=== PATIENT | male | born 1970 | race Caucasian/White ===

== ENCOUNTER 2018-09-08 23:46 | Emergency (ER) | payer SELFPAY ==
[2018-09-08 23:59] VITALS: BP 121/86
[2018-09-09] MEDS ORDERED: BUFFERED LIDOCAINE 10 ML SYRINGE SUBQ STA (00:31)
[2018-09-09] MEDS ORDERED: SULFAM/TRIM 800/160 Prepack 2 PO ONE (01:30)
--- NOTE | 2018-09-09 01:32 | ED Physician Documentation ---
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 It is quite painful with any movement. He does have a prior history of having something similar happen to his knee and that required a hospitalization with a cleanout of his knee. This was for him a staph organism. Review of Systems Constitutional: reports: Fatigue. denies: Fever, Chills Eyes: denies: Decreased vision Ears: denies: Ear pain Nose: denies: Congestion Throat: denies: Sore throat Respiratory: denies: Cough GI: denies: Vomiting Skin: denies: Rash Musculoskeletal: reports: Extremity pain, Joint pain, Extremity swelling, Joint swelling. denies: Neck pain, Back pain Neurologic: denies: Generalized weakness, Focal weakness, Numbness PD PAST MEDICAL HISTORY - Present Medications Home Medications: Ambulatory Orders Medication Instructions Recorded Confirmed Sulfamethoxazole/Trimethoprim 1 each PO BID #14 tablet 09/09/18 [Sulfamethoxazole-Tmp Ds Tablet] - Allergies Allergies/Adverse Reactions: Allergies Allergy/AdvReac Type Severity Reaction Status Date / Time No Known Drug Allergies Allergy Verified 09/08/18 23:59 PD ED PE NORMAL - Vitals Vital signs reviewed: Yes (tachy nad hypertensive) - General General: Alert and oriented X 3, Well developed/nourished, Other (appears to be in pain ) - HEENT HEENT: Atraumatic, PERRL, EOMI - Neck Neck: Supple, no meningeal sign, No bony TTP - Respiratory Respiratory: No respiratory distress - Derm Derm: Normal color, Warm and dry - Extremities Extremities: Other (There is swelling point tenderness and erythema to the left elbow with surrounding cellulitis from about 2cm up the humerus to 3cm below the olecrenon process. The olecrenon is tender and mostly firm with a central area of bogginess. Distal n/v is intact. 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, No motor deficit, No sensory deficit, Normal speech Eye Opening: Spontaneous Motor: Obeys Commands Verbal: Oriented GCS Score: 15 - Psych Psych: Normal mood, Normal affect Results - Vitals Vitals: Vital Signs - 24 hr 09/08/18 23:56 Temperature 37.2 C Heart Rate 110 H Respiratory 18 Rate Blood Pressure 121/86 H O2 Saturation 98 Oxygen O2 Source Room air - Labs Labs: Microbiology 09/09/18 01:15 Wound Culture - Preliminary Abscess Procedures - Abscess I&D (location) left elbow Preparation: Confirmed with ultrasound, Chlorhexadine, Lidocaine 1% Incision: Needle aspiration, Purulent drainage, Culture obtained Other: Pt tolerated well, Antibiotic prescribed PD MEDICAL DECISION MAKING - ED course Complexity details: reviewed results, re-evaluated patient, considered differential, d/w patient, d/w family ED course: 47-year-old male has an abscess to his left elbow it is indeterminate if this is in the bursa or in the soft tissue of the elbow. Only a small amount of fluid is drained from a fluid collection that is small over the tip of the elbow. Patient is placed onto Septra and will follow up with orthopedics. Departure - Departure Disposition: 01 Home, Self Care Clinical Impression: Abscess Condition: Stable Instructions: ED Abscess IandD Follow-Up: [facility] [Provider Group] Prescriptions: Sulfamethoxazole/Trimethoprim [Sulfamethoxazole-Tmp Ds Tablet] 1 each PO BID #14 tablet Discharge Date/Time: 09/09/18 02:29
== END 2018-09-09 02:29 | disposition home or self-care (01) ==
LOC: ED 23:46
DX: L02.414 Cutaneous abscess of left upper limb (principal); L03.114 Cellulitis of left upper limb
CPT/HCPCS: 10160; 23930; 87070; 87181; 87205; 99283

== ENCOUNTER 2018-09-10 21:17 | Emergency (ER) | payer SELFPAY ==
[2018-09-10] MEDS ORDERED: HYDROmorphone 1 MG/ML CARPUJECT IM STA (21:40)
[2018-09-10] MEDS ORDERED: LORazepam 2 MG/ML VIAL IM STA (21:40)
[2018-09-10] MEDS ORDERED: BUFFERED LIDOCAINE 10 ML SYRINGE SUBQ STA (21:40)
--- NOTE | 2018-09-10 21:42 | ED Physician Documentation ---
PD HPI UPPER EXT INJURY - Stated complaint Stated Complaint: ARM PX - Chief complaint Chief Complaint: Ext Problem - History obtained from History obtained from: Patient - History of Present Illness Location: Left Type of injury: Blunt / blow (This is a 47-year-old gentleman who was seen here 2 days ago for left elbow swelling. A needle aspiration of either bursitis or an abscess was done and preliminarily at this point is growing staph aureus, sensitivities are not available yet. He has had a reaccumulation of the fluid and significant pain. He feels a little sick but no measured fevers.) Review of Systems Constitutional: denies: Fever, Chills GI: denies: Abdominal Pain, Nausea, Vomiting : denies: Dysuria, Frequency PD PAST MEDICAL HISTORY - Present Medications Home Medications: Ambulatory Orders Medication Instructions Recorded Confirmed Sulfamethoxazole/Trimethoprim 1 each PO BID #14 tablet 09/09/18 [Sulfamethoxazole-Tmp Ds Tablet] Hydrocodone/Acetaminophen 1 - 2 each PO Q6H PRN #14 tablet 09/10/18 [Hydrocodon-Acetaminophen 5-325] - Allergies Allergies/Adverse Reactions: Allergies Allergy/AdvReac Type Severity Reaction Status Date / Time No Known Drug Allergies Allergy Verified 09/10/18 21:25 PD ED PE NORMAL - Vitals Vital signs reviewed: Yes - General General: Alert and oriented X 3, No acute distress - Extremities Extremities: Other (He appears to have septic olecranon bursitis of the left elbow with full and painless range of motion.) - Neuro Neuro: Alert and oriented X 3, Normal speech - Psych Psych: Normal mood, Normal affect Results - Vitals Vitals: Vital Signs - 24 hr 09/10/18 21:28 Temperature 36.6 C Heart Rate 118 H Respiratory 18 Rate Blood Pressure 144/97 H O2 Saturation 99 Oxygen O2 Source Room air Procedures - Abscess I&D (location) Left elbow bursa Preparation: Betadine, Lidocaine 1%, Other (pretreated with ativan/dilaudid IM) Incision: Incised with scalpel, Purulent drainage, Loculations broken, Packed (with 1/4 inch packing). No: Culture obtained (already done) Other: Pt tolerated well, Dressing applied. No: Antibiotic prescribed (on bactrim) Departure - Departure Disposition: 01 Home, Self Care Clinical Impression: Septic bursitis of elbow Qualifiers: Laterality: left Qualified Code(s): M71.122 - Other infective bursitis, left elbow Condition: Good Record reviewed to determine appropriate education?: Yes Instructions: ED Bursitis Elbow Olecranon Follow-Up: [facility] [Provider Group] Prescriptions: Hydrocodone/Acetaminophen [Hydrocodon-Acetaminophen 5-325] 1 - 2 each PO Q6H PRN #14 tablet PRN Reason: pain Comments: As discussed you need to follow-up in 2 days. Call the orthopedics office tomorrow, if unable to obtain follow-up on return here afternoon to follow-up with me. Final cultures are still pending. Continue the antibiotics. Do not drink or drive while taking narcotic pain medication. Note that many narcotic pain relievers also contain Tylenol/acetaminophen. Please ensure that your total dose of acetaminophen from all sources does not exceed 3 g (3000 mg) per day. You may get constipated while on this medication. Take a stool softener such as Colace twice a day while you are on it. Also add an [id number] laxative such as senna or MiraLAX on any day that you do not have a bowel movement. If you received a narcotic pain medication or sedative while in the emergency department, do not drive for the next 24 hours. Your blood pressure was elevated today on check into the emergency department. This does not mean that you have hypertension, it is a common phenomenon to come to the emergency department and have elevated blood pressure. I recommend that you see your primary care physician within the week to have it rechecked when you are feeling better.
[2018-09-10] MEDS ORDERED: HYDROcod/ACET 5/325 Prepack 4 PO STA (22:27)
[2018-09-10 22:36] VITALS: BP 118/84
== END 2018-09-10 22:39 | disposition home or self-care (01) ==
LOC: ED 21:17
DX: M71.122 Other infective bursitis, left elbow (principal); R03.0 Elevated blood-pressure reading, without diagnosis of hypertension
CPT/HCPCS: 23931; 96372; 99283; J1170; J2060